=== PATIENT | female | born 1955 | race Hispanic/Latino ===

== ENCOUNTER 2017-11-06 18:22 | Emergency (ER) | payer MEDICAID ==
[2017-11-06 18:27] VITALS: BP 106/53; PULSE 65; RESP 16; TEMP 97.2; O2SAT 98
--- NOTE | 2017-11-06 18:40 | ED PDOC ---
HPI: Back Time Seen by Provider: 11/06/17 18:33 Chief Complaint (Nursing): Back Pain Chief Complaint (Provider): Neck Pain History Per: Patient History/Exam Limitations: no limitations Onset/Duration Of Symptoms: Days (x1.5 weeks) Current Symptoms Are (Timing): Still Present Additional Complaint(s): Marcie Kerr is a 61 year old female, who presents to the ED complaining of neck pain x1.5 weeks. Patient denies any fall or recent trauma to neck. States pain is localized to right side of neck. Says she has previously taken Tylenol and Advil without relief, but has not taken any medication for pain today. PMD: [facility] Provider Past Medical History Reviewed: Historical Data, Nursing Documentation, Vital Signs Vital Signs: Last Vital Signs Temp 97.2 F L 11/06/17 18:24 Pulse 65 11/06/17 18:24 Resp 16 11/06/17 18:24 BP 106/53 L 11/06/17 18:24 Pulse Ox 98 11/06/17 18:24 - Medical History PMH: Diabetes - Surgical History Surgical History: Cholecystectomy Other surgeries: Eye surgery - Family History Family History: States: Unknown Family Hx - Social History Current smoker - smoking cessation education provided: Yes Alcohol: None Drugs: Denies - Home Medications Home Medications: Ambulatory Orders Medication Instructions Recorded Cyclobenzaprine [Cyclobenzaprine 10 mg PO TID PRN #20 tab 11/06/17 HCl] MetFORMIN [glucoPHAGE] 1,000 mg PO BID #60 tab 11/06/17 Naproxen [Naprosyn] 500 mg PO BID #20 tab 11/06/17 - Allergies Allergies/Adverse Reactions: Allergies Allergy/AdvReac Type Severity Reaction Status Date / Time No Known Allergies Allergy Verified 11/06/17 18:27 Review of Systems ROS Statement: Except As Marked, All Systems Reviewed And Found Negative Musculoskeletal: Positive for: Neck Pain (right sided) Physical Exam - Reviewed Nursing Documentation Reviewed: Yes Vital Signs Reviewed: Yes - Physical Exam Appears: Positive for: Non-toxic, No Acute Distress Head Exam: Positive for: ATRAUMATIC Skin: Positive for: Normal Color, Warm. Negative for: Rash Eye Exam: Positive for: Normal appearance Neck: Negative for: Normal (tenderness and muscle spasms to right paraspinal region along cervical spine) Neurologic/Psych: Positive for: Alert, Oriented (x3) - ECG O2 Sat by Pulse Oximetry: 98 (RA) Pulse Ox Interpretation: Normal - Other Rad cervical spine x-ray X-Ray: Interpreted by Me, Viewed By Me X-Ray Interpretation: no fx, no dis, arthritic changes Medical Decision Making Medical Decision Making: Time: 18:37 Initial Impression: 61 year old female with neck pain Plan: --Flexeril 10 mg PO --Toradol 30 mg IM --Tramadol 50 mg PO --X-Ray Cervical spine --Reevaluation Patient is aware of x-ray results. All questions answered. Pain is better after meds given. Patient requested fingerstick: 309 noted. Patient is known diabetic who admits to be non-compliant with her metformin. She is supposed to take 1000 mg BID and has not take her meds in 2 weeks. 1000 mg dose given in ED along with rx for same. Rx naprosyn and flexeril also given for pain control. Advised PMD follow up [facility]. Scribe Attestation: Documented by Jose L Brody, acting as a scribe for Zeynep Hernandez PA-C Provider Scribe Attestation: All medical record entries made by the Scribe were at my direction and personally dictated by me. I have reviewed the chart and agree that the record accurately reflects my personal performance of the history, physical exam, medical decision making, and the department course for this patient. I have also personally directed, reviewed, and agree with the discharge instructions and disposition. Disposition - Clinical Impression Clinical Impression: Neck pain, Diabetes mellitus with hyperglycemia - Patient ED Disposition Is Patient to be Admitted: No Counseled Patient/Family Regarding: Studies Performed, Diagnosis, Need For Followup, Rx Given - Disposition Referrals: [facility] [Outside] Disposition: Routine/Home Disposition Time: 19:45 Condition: STABLE Additional Instructions: YOU MUST TAKE YOUR METFORMIN EVERY DAY PRESCRIBED. DO NOT SKIP DOSES. TAKE PAIN MEDS DIRECTED NEEDED FOR NECK PAIN. FOLLOW UP WITH PRIMARY CARE DOCTOR IN 2-3 DAYS. Prescriptions: Cyclobenzaprine [Cyclobenzaprine HCl] 10 mg PO TID PRN #20 tab PRN Reason: Muscle Spasm MetFORMIN [glucoPHAGE] 1,000 mg PO BID #60 tab Naproxen [Naprosyn] 500 mg PO BID #20 tab Instructions: Diabetic Hyperglycemia (ED), Cervical Sprain (ED) Forms: [employer] (Macedonian)
--- NOTE | 2017-11-07 09:11 | RAD ---
PROCEDURE: Cervical Spine Radiographs. HISTORY: Pain. COMPARISON: None. FINDINGS: BONES: Alignment maintained. No fracture. Dens Intact. DISC SPACES: Multilevel spondylosis appears relatively prominent, occurring at the mid inferior levels predominantly. Multilevel facet joint arthropathy is diffuse. SOFT TISSUES: Normal. No prevertebral soft tissue swelling. OTHER FINDINGS: None. IMPRESSION: Multilevel degenerative disc disease is seen predominate the mid and inferior levels with diffuse facet joint arthropathy appreciate throughout the cervical spine. No fracture or spondylolisthesis is identified.
== END 2017-11-06 20:10 | disposition home or self-care (01) ==
LOC: H.ER 18:22
DX: M54.2 Cervicalgia (principal); E11.65 Type 2 diabetes mellitus with hyperglycemia; Z79.84 Long term (current) use of oral hypoglycemic drugs; Z91.19 Patient's noncompliance with other medical treatment and regimen; F17.200 Nicotine dependence, unspecified, uncomplicated
CPT/HCPCS: 72040; 82948; 96372; 99282; J1885

== ENCOUNTER 2018-11-09 12:45 | Emergency (ER) | payer MEDICAID, OTHER ==
[2018-11-09 12:56] VITALS: BMI 22.4
[2018-11-09 12:58] VITALS: RESP 18; TEMP 98.5; O2SAT 98
[2018-11-09] MEDS ORDERED: Lidocaine 5% Patch TD STA (13:26)
--- NOTE | 2018-11-09 13:29 | ED PDOC ---
HPI: General Adult Time Seen by Provider: 11/09/18 13:20 Chief Complaint (Nursing): Back Pain Chief Complaint (Provider): Neck Pain History Per: Patient History/Exam Limitations: no limitations Onset/Duration Of Symptoms: Intermittent Episodes, Worse Since (x 1 weeks), Other (since July) Additional Complaint(s): 62 y/o female with history of diabetes presents to ER for evaluation of inte rmittent right sided neck pain since July but worse onset 1 week ago. Patient had multiple visits to the ED for the same complaint. She reports she takes Metformin when she remembers for diabetes but her sugar is always high. Patient denies any nausea, vomiting, diarrhea, chest pain, vision changes or urinary symptoms. Had an accident several months ago and pt. having neck pain since. Has had imaging in the past that is neg. PMD: non provided Past Medical History Reviewed: Historical Data, Nursing Documentation, Vital Signs Vital Signs: Last Vital Signs Temp 98.5 F 11/09/18 12:56 Pulse 90 11/09/18 12:56 Resp 18 11/09/18 12:56 BP 99/68 L 11/09/18 12:56 Pulse Ox 98 11/09/18 12:56 - Medical History PMH: Diabetes - Surgical History Surgical History: Cholecystectomy - Family History Family History: States: Unknown Family Hx - Social History Current smoker - smoking cessation education provided: No Alcohol: None Drugs: Denies - Home Medications Home Medications: Ambulatory Orders Medication Instructions Recorded MetFORMIN [glucoPHAGE] 1,000 mg PO BID #60 tab 11/06/17 Cyclobenzaprine [Cyclobenzaprine 10 mg PO TID #30 tab 08/03/18 HCl] Ibuprofen [Motrin] 600 mg PO Q8 #30 tab 08/03/18 Diazepam [Valium] 2 mg PO BID PRN #6 tab 11/09/18 Ibuprofen [Motrin] 600 mg PO TID 7 Days tab 11/09/18 Lidocaine 5% [Lidoderm] 1 ea TD DAILY PRN #5 patch 11/09/18 - Allergies Allergies/Adverse Reactions: Allergies Allergy/AdvReac Type Severity Reaction Status Date / Time No Known Allergies Allergy Verified 11/09/18 13:10 Review of Systems ROS Statement: Except As Marked, All Systems Reviewed And Found Negative Eyes: Negative for: Vision Change Respiratory: Negative for: Shortness of Breath Gastrointestinal: Negative for: Nausea, Vomiting, Abdominal Pain, Diarrhea Genitourinary Female: Negative for: Dysuria, Hematuria Musculoskeletal: Positive for: Neck Pain (Right sided) Physical Exam - Reviewed Nursing Documentation Reviewed: Yes Vital Signs Reviewed: Yes - Physical Exam Appears: Positive for: Well, No Acute Distress Head Exam: Positive for: ATRAUMATIC, NORMOCEPHALIC Skin: Positive for: Normal Color, Warm, Dry ENT: Positive for: Normal ENT Inspection Neck: Positive for: Painless ROM (with tenderness to right lateral neck. No ecchymosis), Supple, Trachea Midline Back: Positive for: Normal Inspection. Negative for: L CVA Tenderness, R CVA Tenderness, Other (Spinal tenderness) Extremity: Positive for: Normal ROM. Negative for: Tenderness, Pedal Edema Neurologic/Psych: Positive for: Alert, Oriented (x3) - ECG O2 Sat by Pulse Oximetry: 98 (RA) Pulse Ox Interpretation: Normal - Progress ED Course And Treament: 1557: Pt. states sugar usually is 400-500. That is her normal. Noncompliant with meds. Has no symptoms with hyperglycemia like nausea, vomit, weakness, dsyuria. No neck pain. Tolerates Po. AAOx3. Fu with pcp. Sugar improved with insulin. Pt. advised to take meds. Medical Decision Making Medical Decision Making: Time: 1325 Initial Impression: Initial Plan: --Lidocaine 1 ea TD --Motrin 600 mg PO --Valium 5 mg PO Scribe Attestation: Documented by Tatyana Calderon, acting as a scribe for Yoel Cheung MD. Provider Scribe Attestation: All medical record entries made by the Scribe were at my direction and personally dictated by me. I have reviewed the chart and agree that the record accurately reflects my personal performance of the history, physical exam, medical decision making, and the department course for this patient. I have also personally directed, reviewed, and agree with the discharge instructions and disposition. Disposition - Clinical Impression Clinical Impression: Neck pain, Diabetes mellitus with hyperglycemia - Patient ED Disposition Is Patient to be Admitted: No Counseled Patient/Family Regarding: Studies Performed, Diagnosis, Need For Followup, Rx Given - Disposition Referrals: [facility] [Outside] - 11/11/18 Disposition: Routine/Home Disposition Time: 15:49 Condition: STABLE Additional Instructions: Return if not better in 3 days. Prescriptions: Diazepam [Valium] 2 mg PO BID PRN #6 tab PRN Reason: Muscle Spasm Ibuprofen [Motrin] 600 mg PO TID 7 Days tab Lidocaine 5% [Lidoderm] 1 ea TD DAILY PRN #5 patch PRN Reason: Pain, Moderate (4-7) Instructions: Type 2 Diabetes, Chronic Neck Pain (DC) Print Language: SI[place] LEONE[place]
[2018-11-09] MEDS ORDERED: Lidocaine 5% Patch TD ONE (13:36)
[2018-11-09] MEDS ORDERED: Insulin Regular 100 units/ml SC STA (13:50)
[2018-11-09] MEDS ORDERED: Insulin Regular 100 units/ml ONE (14:01)
[2018-11-09 17:00] VITALS: BP 110/70; PULSE 88
== END 2018-11-09 16:37 | disposition home or self-care (01) ==
LOC: H.ER 12:45
DX: M54.2 Cervicalgia (principal); E11.65 Type 2 diabetes mellitus with hyperglycemia; Z79.84 Long term (current) use of oral hypoglycemic drugs

== ENCOUNTER 2018-11-22 12:13 | Emergency (ER) | payer OTHER ==
[2018-11-22 12:13] VITALS: BMI 22.4
[2018-11-22 12:27] VITALS: BP 100/67; PULSE 78; RESP 18; TEMP 98.3; O2SAT 98
--- NOTE | 2018-11-22 12:36 | ED PDOC ---
HPI: Trauma/Fall - HPI Time Seen by Provider: 11/22/18 12:27 Chief Complaint (Nursing): Trauma Chief Complaint (Provider): Trauma History Per: Patient History/Exam Limitations: no limitations Onset/Duration Of Symptoms: Days Additional Complaint(s): 62 y/o female with a PMHx of diabetes presents to the ED for evaluation of a laceration to the nasal bridge of her nose, onset three days ago. Patient states she was in her storage room on Friday night when a metal mirror accidentally fell on her, hitting her face on the bridge of her nose. Patient reports of dizziness at the time of the incident. Patient additionally reports of bleeding two days ago and increased swelling since onset. Otherwise, patient denies loss of consciousness, vomiting, neck stiffness, vision changes, bleeding at this time and bleeding elsewhere. PMD: no provider Tetanus vaccination not up to date Past Medical History Reviewed: Historical Data, Nursing Documentation, Vital Signs Vital Signs: Last Vital Signs Temp 98.3 F 11/22/18 12:25 Pulse 78 11/22/18 12:25 Resp 18 11/22/18 12:25 BP 100/67 11/22/18 12:25 Pulse Ox 98 11/22/18 12:25 - Medical History PMH: Diabetes - Surgical History Surgical History: Cholecystectomy - Family History Family History: States: Unknown Family Hx - Immunization History Hx Tetanus Toxoid Vaccination: No - Home Medications Home Medications: Ambulatory Orders Medication Instructions Recorded MetFORMIN [glucoPHAGE] 1,000 mg PO BID #60 tab 11/06/17 Cyclobenzaprine [Cyclobenzaprine 10 mg PO TID #30 tab 08/03/18 HCl] Ibuprofen [Motrin] 600 mg PO Q8 #30 tab 08/03/18 Diazepam [Valium] 2 mg PO BID PRN #6 tab 11/09/18 Ibuprofen [Motrin] 600 mg PO TID 7 Days tab 11/09/18 Lidocaine 5% [Lidoderm] 1 ea TD DAILY PRN #5 patch 11/09/18 Acetaminophen [Tylenol 325mg tab] 650 mg PO Q6 PRN 7 Days tab 11/22/18 Ibuprofen [Motrin Tab] 600 mg PO Q6 PRN 7 Days tab 11/22/18 - Allergies Allergies/Adverse Reactions: Allergies Allergy/AdvReac Type Severity Reaction Status Date / Time No Known Allergies Allergy Verified 11/09/18 13:10 Review of Systems ROS Statement: Except As Marked, All Systems Reviewed And Found Negative Eyes: Negative for: Vision Change Gastrointestinal: Negative for: Vomiting Musculoskeletal: Positive for: Other (Laceration to the nasal bridge). Negative for: Neck Pain Neurological: Positive for: Dizziness. Negative for: Other (loss of conciousness) Physical Exam - Reviewed Nursing Documentation Reviewed: Yes Vital Signs Reviewed: Yes - Physical Exam Appears: Positive for: No Acute Distress Eye Exam: Positive for: EOMI, PERRL, Periorbital swelling (bilateral) ENT: Positive for: Pharynx Is (clear), TM Is/Are (TMs are normal), Other (0.5 cm healing laceration to the bridge of the nose, mild ecchymosis and swelling. (+) Tenderness to palpation on the bridge of the nose. No blood noted in the nares.). Negative for: Pharyngeal Erythema, Tonsillar Exudate, Tonsillar Swelling Neck: Positive for: Painless ROM (Normal flexion, extension and lateral rotation. ), Supple - ECG O2 Sat by Pulse Oximetry: 98 (RA) Pulse Ox Interpretation: Normal Medical Decision Making Medical Decision Making: Time: 1238 Plan: -- CT Maxillofacial w/o Contrast -- Adacel (10-64 yrs) 0.5 ml IM Time: 1340 CT RESULTS FINDINGS: NASAL BONES: Unremarkable. Leftward bony nasal septal deviation. ORBITS: Mild right greater than left preseptal periorbital edema. PARANASAL SINUSES/ MASTOIDS: Small left solomon bullosa. MAXILLA: Unremarkable. MANDIBLE/ TEMPOROMANDIBULAR JOINTS: Unremarkable. SKULL BASE: Unremarkable. TEMPORAL BONES: Middle ears and mastoid grossly unremarkable. OTHER FINDINGS: None. IMPRESSION: No fracture identified. No destructive bony lesion evident. Preseptal periorbital edema seen slightly greater the right than left sides. No postseptal involvement. Scribe Attestation: Documented by Justine Mcnair, acting as a scribe Lluvia Diaz PA-C. Provider Scribe Attestation: All medical record entries made by the Scribe were at my direction and personally dictated by me. I have reviewed the chart and agree that the record accurately reflects my personal performance of the history, physical exam, medical decision making, and the department course for this patient. I have also personally directed, reviewed, and agree with the discharge instructions and disposition. Disposition - Clinical Impression Clinical Impression: Facial trauma - Patient ED Disposition Is Patient to be Admitted: No - Disposition Referrals: [facility] [Non-Staff] - Disposition: Routine/Home Disposition Time: 15:04 Condition: STABLE Additional Instructions: You can take Ibuprofen or Tylenol for pain. Return to ER if you develop dizziness, Nausea or vomiting, weakness on one side of your body or visual changes. Prescriptions: Acetaminophen [Tylenol 325mg tab] 650 mg PO Q6 PRN 7 Days tab PRN Reason: Pain, Moderate (4-7) Ibuprofen [Motrin Tab] 600 mg PO Q6 PRN 7 Days tab PRN Reason: Pain, Moderate (4-7) Instructions: Head Injury Observation (DC) Forms: [employer] (Tristanian) Print Language: GEORGIAN
[2018-11-22] MEDS ORDERED: Tdap Vaccine 0.5 ml Vial (10-64 yrs) IM ONE (12:38)
--- NOTE | 2018-11-22 13:43 | CT ---
Date of service: 11/22/2018 PROCEDURE: CT MAXILLOFACIAL BONES WITHOUT CONTRAST HISTORY: jose maria-orbital ecchymosis, pain on bridge of nose COMPARISON: None available. TECHNIQUE: Contiguous axial CT images of the maxillofacial bones were obtained. Coronal and sagittal reformats were generated. Radiation dose: Total exam DLP = 708.16 mGy-cm. This CT exam was performed using one or more of the following dose reduction techniques: Automated exposure control, adjustment of the mA and/or kV according to patient size, and/or use of iterative reconstruction technique. FINDINGS: NASAL BONES: Unremarkable. Leftward bony nasal septal deviation. ORBITS: Mild right greater than left preseptal periorbital edema. PARANASAL SINUSES/ MASTOIDS: Small left solomon bullosa. MAXILLA: Unremarkable. MANDIBLE/ TEMPOROMANDIBULAR JOINTS: Unremarkable. SKULL BASE: Unremarkable. TEMPORAL BONES: Middle ears and mastoid grossly unremarkable. OTHER FINDINGS: None. IMPRESSION: No fracture identified. No destructive bony lesion evident. Preseptal periorbital edema seen slightly greater the right than left sides. No postseptal involvement.
== END 2018-11-22 14:09 | disposition home or self-care (01) ==
LOC: H.ER 12:13
DX: S01.21XA Laceration without foreign body of nose, initial encounter (principal); W22.8XXA Striking against or struck by other objects, initial encounter; Y92.89 Other specified places as the place of occurrence of the external cause